=== PATIENT | male | born 2000 | race Two or more races ===

== ENCOUNTER 2022-01-29 16:27 | Inpatient (IN) | payer MEDICAID ==
[~2022-01-29] VITALS: Ht 188 cm; Wt 120.2 kg
[2022-01-29] MEDS ORDERED: AMPICILLIN & SULBACTAM SODIUM 1.5 GM in SODIUM CHL 0.9% 100 ML IV STA (18:41)
[2022-01-29] MEDS ORDERED: VANCOMYCIN 1GM/250ML 250 ML IV ONE (18:45)
[2022-01-29] MEDS ORDERED: TETANUS-DIPTH-ACEL PERTUSSIS 0.5ML SYR Tdap IM ONE (19:00)
[2022-01-29] MEDS ORDERED: HYDROcodone-ACET 5/325MG TAB PO ONE ×2 (19:00→23:15)
[2022-01-29 19:14] LABS: Basophils # (auto) 0.1 10 ^3/uL (0-0.2); Eosinophils # (auto) 0.2 10 ^3/uL (0-0.8); Eosinophils % (auto) 1.4 % (0.0-7.0); Hematocrit 43.1 % (41.0-53.0); Hemoglobin 14.4 g/dL (13.5-17.5); Lymphocytes # (auto) 3.7 10 ^3/uL (0.4-5.4); Lymphocytes % (auto) 32.4 % (10.0-50.0); Mean Corpuscular Hemoglobin 29.4 pg (28.0-32.0); Mean Corpuscular Hgb Conc. 33.4 g/dL (32.0-36.0); Monocytes % (auto) 8.8 % (0.0-12.0); Neutrophils # (auto) 6.5 10 ^3/uL (1.6-8.6); Neutrophils % (auto) 56.4 % (37.0-80.0); Red Cell Distribution Width 12.9 % (11.8-14.3); White Blood Cell 11.5 10^3/uL (4.4-10.8)
[2022-01-29 19:30] LABS: Albumin 3.8 g/dL (3.4-5.0); Calcium 8.8 mg/dL (8.5-10.1); Potassium 3.8 mmol/L (3.5-5.1)
[2022-01-29 19:39] LABS: BUN/Creatinine Ratio 13.4; Bilirubin, Total 0.4 mg/dL (0.2-1.0); CRP High Sensitivity 6.16 mg/dL (< 0.3); Total Protein 7.9 g/dL (6.4-8.2)
[2022-01-29] MEDS ORDERED: IOHEXOL 300 MG/ML 100ML BOTTLE IJ ONE (19:49)
[2022-01-30] MEDS ORDERED: DOCUSATE SOD 100 MG CAP PO PRN
[2022-01-30] MEDS ORDERED: VANCOMYCIN PER PHARMACY 0 MG IV SCH
[2022-01-30] MEDS ORDERED: ACETAMINOPHEN 325 MG TAB PO PRN
[2022-01-30] MEDS ORDERED: MORPHINE SULFATE INJ 2 MG/ml SYRG IV PRN
[2022-01-30] MEDS ORDERED: NITROGLYCERIN 0.4 MG SL TAB SL PRN
[2022-01-30] MEDS: SODIUM CHLORIDE 0.9% 1,000 ML IV SCH ×2 (00:29→16:26)
[2022-01-30] MEDS ORDERED: VANCOMYCIN 1GM/250ML 250 ML IV ONE (03:00)
[2022-01-30] MEDS: ONDANSETRON HCL 4 MG/2 ML VIAL IV PRN ×2 (03:18→09:48)
[2022-01-30] MEDS: MORPHINE SULFATE INJ 2 MG/ml SYRG IV PRN ×2 (03:19→09:51)
[2022-01-30] MEDS: HYDROcodone-ACET 5/325MG TAB PO PRN ×4 (04:32→22:05)
[2022-01-30 07:14] LABS: Basophils # (auto) 0.1 10 ^3/uL (0-0.2); Basophils % (auto) 0.6 % (0.0-2.0); Eosinophils # (auto) 0.1 10 ^3/uL (0-0.8); Eosinophils % (auto) 1.5 % (0.0-7.0); Hematocrit 40.8 % (41.0-53.0); Hemoglobin 13.6 g/dL (13.5-17.5); Lymphocytes # (auto) 2.9 10 ^3/uL (0.4-5.4); Mean Corpuscular Hemoglobin 29.3 pg (28.0-32.0); Mean Corpuscular Hgb Conc. 33.4 g/dL (32.0-36.0); Mean Corpuscular Volume 87.7 fL (80.0-100.0); Monocytes # (auto) 0.8 10 ^3/uL (0-1.3); Monocytes % (auto) 8.3 % (0.0-12.0); Neutrophils # (auto) 5.5 10 ^3/uL (1.6-8.6); Neutrophils % (auto) 58.6 % (37.0-80.0); Red Blood Cells 4.66 10^6/uL (4.5-5.90); Red Cell Distribution Width 13.2 % (11.8-14.3); White Blood Cell 9.4 10^3/uL (4.4-10.8)
[2022-01-30 07:28] LABS: Albumin 3.6 g/dL (3.4-5.0); Calcium 8.6 mg/dL (8.5-10.1); Potassium 4.4 mmol/L (3.5-5.1)
[2022-01-30 07:31] LABS: BUN/Creatinine Ratio 11.4; Bilirubin, Total 0.3 mg/dL (0.2-1.0)
[2022-01-30] MEDS: VANCOMYCIN 1GM/250ML 250 ML IV SCH ×2 (11:06→18:12)
[2022-01-30] MEDS: AMPICILLIN & SULBACTAM SODIUM 3 GM in SODIUM CHL 0.9% 100 ML IV SCH ×3 (12:16)
[2022-01-30 17:00] VITALS: BP 132/80
[2022-01-30 20:00] VITALS: BP 133/83
[2022-01-30 22:00] VITALS: BP 133/83
[2022-01-31] MEDS: AMPICILLIN & SULBACTAM SODIUM 3 GM in SODIUM CHL 0.9% 100 ML IV SCH ×2 (00:21→12:10)
[2022-01-31] MEDS: VANCOMYCIN 1GM/250ML 250 ML IV SCH ×3 (03:07→18:35)
[2022-01-31 05:00] VITALS: BP 144/84
[2022-01-31] MEDS: HYDROcodone-ACET 5/325MG TAB PO PRN ×2 (07:39→12:11)
[2022-01-31 09:00] VITALS: BP 114/66
[2022-01-31] MEDS: SODIUM CHLORIDE 0.9% 1,000 ML IV SCH (09:37)
[2022-01-31] MEDS: MORPHINE SULFATE INJ 2 MG/ml SYRG IV PRN (09:38)
[2022-01-31 12:47] VITALS: BP 127/80
[2022-01-31] MEDS ORDERED: MORPHINE SULFATE INJ 2 MG/ml SYRG IV PRN (14:15)
[2022-01-31] MEDS: HYDROcodone-ACET 7.5/325MG TAB PO PRN ×2 (15:06→19:20)
[2022-01-31 15:48] LABS: Albumin 3.9 g/dL (3.4-5.0); Calcium 9.1 mg/dL (8.5-10.1); Phosphorus 3.2 mg/dL (2.5-4.90); Potassium 3.7 mmol/L (3.5-5.1)
[2022-01-31 17:00] VITALS: BP 118/85
[2022-01-31 22:00] VITALS: BP 117/78
[2022-02-01] MEDS: AMPICILLIN & SULBACTAM SODIUM 3 GM in SODIUM CHL 0.9% 100 ML IV SCH ×2 (00:35→12:15)
[2022-02-01] MEDS: HYDROcodone-ACET 7.5/325MG TAB PO PRN ×4 (00:48→13:37)
[2022-02-01] MEDS: SODIUM CHLORIDE 0.9% 1,000 ML IV SCH ×2 (02:00→09:16)
[2022-02-01] MEDS: VANCOMYCIN 1GM/250ML 250 ML IV SCH ×2 (03:24→11:08)
[2022-02-01 05:00] VITALS: BP 130/81
[2022-02-01 05:28] LABS: Albumin 3.5 g/dL (3.4-5.0); BUN/Creatinine Ratio 9.5; Calcium 8.7 mg/dL (8.5-10.1); Phosphorus 4.1 mg/dL (2.5-4.90); Potassium 3.8 mmol/L (3.5-5.1)
[2022-02-01 09:00] VITALS: BP 130/76
[2022-02-01 13:00] VITALS: BP 145/95
[2022-02-01] MEDS ORDERED: LEVO500T31 PO (14:59)
[2022-02-01] MEDS ORDERED: HYDR-4902 PO (14:59)
[2022-02-01] MEDS ORDERED: CLIN300C8 PO (14:59)
[2022-02-01 15:15] VITALS: BP 145/95
[2022-02-01] MEDS ORDERED: VANCOMYCIN 1GM/250ML 250 ML IV SCH (19:00)
== END 2022-02-01 16:42 | disposition home or self-care (01) | DRG 720 ==
LOC: ER 16:30 → OVERFLOW 23:57 → CENTRAL 01-30 16:02
PROVIDERS: ADMIT Nurse Practitioner Family; ATTEND Nurse Practitioner Acute Care
DX: A41.9 Sepsis, unspecified organism (principal); E66.9 Obesity, unspecified; L02.511 Cutaneous abscess of right hand; L03.113 Cellulitis of right upper limb; L98.0 Pyogenic granuloma; Z20.822 Contact with and (suspected) exposure to COVID-19; Z68.34 Body mass index [BMI] 34.0-34.9, adult
CPT/HCPCS: 36415; 73201; 73218; 80053; 80069; 80202; 82550; 85025; 85652; 86141; 87040; 87205; 90471; 90715; 96365; G0378; J2405